=== PATIENT | female | born 1965 | race Caucasian/White ===

== ENCOUNTER 2018-11-10 04:50 | Emergency (ER) | payer BC ==
[2018-11-10] MEDS ORDERED: Ondansetron 4 MG/2 ML SDV IVPUSH ONE (05:10)
[2018-11-10] MEDS ORDERED: Sodium Chloride 0.9% 1,000 ML IV SCH (05:15)
--- NOTE | 2018-11-10 05:17 | EDM.PDOC ---
<Layton Rebollar - Last Filed: 11/10/18 07:15> ED HPI GENERAL MEDICAL PROBLEM - General Chief Complaint: Abdominal Pain Stated Complaint: abdominal pain Time Seen by Provider: 11/10/18 05:00 Source of Information: Reports: Patient, Family (), RN Notes Reviewed History Limitations: Reports: No Limitations - History of Present Illness INITIAL COMMENTS - FREE TEXT/NARRATIVE: The patient states that she was woken from sleep around 04:20 this morning with severe upper abdominal pain, predominantly right upper quadrant, that radiated through to her mid back, just right of center. She is unable to describe the character, and found no modifiers, however, during my interview of the patient, her pain suddenly resolved. She had nausea, but no emesis. No recent constipation or diarrhea. No recent fever. No recent illnesses. No prior similar symptoms. The patient states that she had dinner, including spaghetti and a steak, around 18:00. She states that she had only 1 alcoholic beverage last night. The patient does not have a PCP. Her last general physical exam was anywhere from 3-10 years ago. Right Upper Abdomen Pain Score (Numeric/FACES): 10 - Related Data Allergies Allergy/AdvReac Type Severity Reaction Status Date / Time No Known Allergies Allergy Verified 11/10/18 05:01 Home Meds: Home Meds Hydrocodone/Acetaminophen [Lortab 5-325 mg Tablet] 1 tab PO BID 05/16/14 [ History] Ibuprofen [Motrin] 600 mg PO BID 05/16/14 [History] Past Medical History - Past Surgical History Female Surgical History: Reports: Section (x 1), Hysterectomy ( partial) Musculoskeletal Surgical History: Reports: Other (See Below) (Right 5th finger surgery) Social & Family History - Tobacco Use Smoking Status *Q: Current Every Day Smoker Years of Tobacco use: 41 Packs/Tins Daily: 1 - Alcohol Use Alcohol Use History: Yes Alcohol Use Frequency: Socially (occasionally to excess) - Recreational Drug Use Recreational Drug Use: No - Living Situation & Occupation Living situation: Reports: , with Spouse Occupation: Unemployed ED ROS GENERAL - Review of Systems Review Of Systems: ROS reveals no pertinent complaints other than HPI. ED EXAM, GI/ABD - Physical Exam Exam: See Below Exam Limited By: No Limitations General Appearance: Alert, WD/WN, Other (Initially in considerable pain, however , her pain resolved during my interview. She was pain-free by the time of examination.) Eyes: Bilateral: Normal Appearance, EOMI Ears: Normal External Exam, Hearing Grossly Normal Nose: Normal Inspection Throat/Mouth: Normal Inspection, Normal Lips, Normal Voice, No Airway Compromise Head: Atraumatic, Normocephalic Neck: Normal Inspection, Full Range of Motion Respiratory/Chest: No Respiratory Distress, Lungs Clear, Normal Breath Sounds, No Accessory Muscle Use Cardiovascular: Normal Peripheral Pulses, Regular Rate, Rhythm, No Edema, No Gallop, No JVD, No Murmur, No Rub GI/Abdominal Exam: Normal Bowel Sounds (active), Soft, No Organomegaly, No Distention, No Abnormal Bruit, No Mass, Tender (Mild, right upper quadrant only. Nontender elsewhere. Silverman's sign absent.) (Female) Exam: Deferred Rectal (Female) Exam: Deferred Back Exam: Normal Inspection, Full Range of Motion, NT Extremities: Normal Inspection, Normal Range of Motion, No Pedal Edema, Normal Capillary Refill Neurological: Alert, Oriented, Normal Cognition, No Motor/Sensory Deficits Psychiatric: Normal Affect Skin Exam: Warm, Dry, Intact, Normal Color, No Rash Course - Vital Signs Last Recorded V/S: Last Vital Signs Temp 95.5 F 11/10/18 04:58 Pulse 67 11/10/18 04:58 Resp BP 128/78 11/10/18 04:58 Pulse Ox 98 11/10/18 04:58 - Orders/Labs/Meds Orders: Active Orders 24 hr Category Date Time Status Sodium Chloride 0.9% [Normal Saline] 1,000 ml Med 11/10/18 05:15 Active IV ASDIRECTED Medication Orders Sodium Chloride (Normal Saline) 1,000 mls @ 150 mls/hr IV ASDIRECTED SUREKHA Last Admin: 11/10/18 05:21 Dose: 150 mls/hr Labs: Laboratory Tests 11/10/18 11/10/18 Range/Units 05:00 05:00 WBC 13.12 H (3.98-10.04) K/mm3 RBC 4.81 (3.98-5.22) M/mm3 Hgb 15.3 (11.2-15.7) gm/L Hct 45.7 H (34.1-44.9) % MCV 95.0 H (79.4-94.8) fl MCH 31.8 (25.6-32.2) pg MCHC 33.5 (32.2-35.5) g/dl RDW Std Deviation 47.1 H (36.4-46.3) fL Plt Count 394 H (182-369) K/mm3 MPV 9.6 (9.4-12.3) fl Neutrophils % (Manual) 49 (40-60) % Band Neutrophils % 0 (0-10) % Lymphocytes % (Manual) 46 H (20-40) % Atypical Lymphs % 0 % Monocytes % (Manual) 3 (2-10) % Eosinophils % (Manual) 0 L (0.7-5.8) % Basophils % (Manual) 2 H (0.1-1.2) Platelet Estimate Adequate RBC Morph Comment Normal Sodium 142 (136-145) mEq/L Potassium 4.0 (3.5-5.1) mEq/L Chloride 107 (98-107) mEq/L Carbon Dioxide 24 (21-32) mEq/L Anion Gap 15.0 (5-15) BUN 18 (7-18) mg/dL Creatinine 0.9 (0.55-1.02) mg/dL Est Cr Clr Drug Dosing 60.99 mL/min Estimated GFR (MDRD) > 60 (>60) mL/min BUN/Creatinine Ratio 20.0 H (14-18) Glucose 150 H (74-106) mg/dL Calcium 9.0 (8.5-10.1) mg/dL Total Bilirubin 0.5 (0.2-1.0) mg/dL AST 170 H (15-37) U/L ALT 92 H (14-59) U/L Alkaline Phosphatase 118 H (46-116) U/L Total Protein 6.7 (6.4-8.2) g/dl Albumin 3.4 (3.4-5.0) g/dl Globulin 3.3 gm/dL Albumin/Globulin Ratio 1.0 (1-2) Lipase 151 (73-393) U/L Meds: Medications Generic Name Dose Route Start Last Admin Trade Name Freq PRN Reason Stop Dose Admin Sodium Chloride 1,000 mls @ 150 mls/hr 11/10/18 05:15 11/10/18 05:21 Normal Saline IV 150 mls/hr ASDIRECTED SUREKHA Administration Discontinued Medications Generic Name Dose Route Start Last Admin Trade Name Charley PRN Reason Stop Dose Admin Diatrizoate Meglum/Diatrizoate Sod 90 ml 11/10/18 06:19 11/10/18 06:36 Gastrografin 37% PO 11/10/18 06:20 90 ml ONETIME ONE Administration Iopamidol 100 ml 11/10/18 06:19 11/10/18 06:36 Isovue-300 (61%) IVPUSH 11/10/18 06:20 100 ml ONETIME ONE Administration Ondansetron HCl 4 mg 11/10/18 05:10 11/10/18 05:19 Zofran IVPUSH 11/10/18 05:11 4 mg ONETIME ONE Administration - Re-Assessments/Exams Free Text/Narrative Re-Assessment/Exam: 11/10/18 05:12 Both history and physical examination, the pain that the patient was experiencing earlier was most likely biliary colic. The pain has now resolved. I have ordered blood work and a CT scan of the abdomen and pelvis to evaluate. In the meantime, patient will receive some Zofran and IV fluid. She may have pain medication if her pain returns. 11/10/18 06:42 The patient's CBC is remarkable for a WBC count elevated at 13.12, but with 0% bandemia. The hemoglobin is normal, but the hematocrit is slightly elevated at 45.7. Platelets are elevated at 394,000. The remainder of the CBC is unremarkable. Her CMP is remarkable for a blood glucose elevated at 150, AST/ALT elevated at 170/92, and alkaline phosphatase slightly elevated at 118. The remainder of the CMP is normal. Her lipase is within normal limits at 115. 11/10/18 07:[address] Rob Toney, and care of the patient turned over to him at this time, for change of shift. Departure - Departure Disposition: Home, Self-Care 01 Clinical Impression: Abdominal pain Qualifiers: Abdominal location: right upper quadrant Qualified Code(s): R10.11 - Right upper quadrant pain - Discharge Information Referrals: PCP,None [Primary Care Provider] - Forms: ED Department Discharge Additional Instructions: Out patient order has been provided and you are scheduled for US of GB 8 AM tomorrow. Nothing to eat or drink after midnight tonight. Avoid fatty foods in general for now for as discussed that could easily trigger further GB symptoms. Follow up with Dr Oliveros, General Surgeon at [facility] or one of the other providers at [facility] preferably about 2 to 3 days after US of FB. Call [phone] for appt. Return to ED if symptoms worsening in any way. <Kenneth Toney - Last Filed: 11/10/18 07:35> Course - Re-Assessments/Exams Free Text/Narrative Re-Assessment/Exam: 11/10/18 07:25 CT of abd shows some gallstones in the GB, no acute findings. Her pain is gone , hx very strongly suggestive for GB, she may have passed a stone. Will set her up for outpatient US of GB. That is scheduled for 8 AM tomorrow, discharge instr. as documented. Departure - Departure Time of Disposition: 07:27 Condition: Fair
[2018-11-10] MEDS ORDERED: Iopamidol 612 MG/ML 100 ML Bottle IVPUSH ONE (06:19)
[2018-11-10] MEDS ORDERED: Diatrizoate Meglumine/Diatrizoate Sodium 37% 120 ML Bottle PO ONE (06:19)
--- NOTE | 2018-11-10 07:08 | CT ---
CT Abdomen and pelvis Technique: Multiple axial sections were obtained from above the dome of the diaphragm inferiorly through the pubic symphysis. Intravenous and oral contrast has been given. Comparison: No previous CT abdomen or pelvis exam. Focal density noted within the right lung base either due to scarring or atelectasis. Liver contains no focal abnormality. Spleen appears within normal limits. Gallstones seen within the gallbladder. No gallbladder wall thickening is seen on this exam. Pancreas is within normal limits. Adrenal glands show no nodule. Kidneys show symmetric contrast enhancement without hydronephrosis or mass. Aorta shows no aneurysm. No retroperitoneal adenopathy or mesenteric abnormalities are seen. Appendix is seen which is normal in size. Diverticuli are seen within the sigmoid colon which show no evidence of diverticulitis. Previous hysterectomy is noted. No free fluid or inflammatory change is seen. Delayed images show contrast within the distal ureters and bladder. Bone window settings were reviewed which appear within normal limits for the patient's age. Impression: 1. Gallstones. 2. Mild atelectasis or scarring within the right lung base. 3. Sigmoid diverticuli without diverticulitis. 4. Prior hysterectomy. Diagnostic code #3
== END 2018-11-10 07:50 | disposition home or self-care (01) ==
LOC: JD.ED 04:50
DX: R10.11 Right upper quadrant pain (principal); F17.210 Nicotine dependence, cigarettes, uncomplicated
CPT/HCPCS: 36415; 74177; 80053; 83690; 85007; 85027; 96361; 96374; 99284; J2405; J7040; Q9963; Q9967

== ENCOUNTER 2020-07-24 13:02 | Emergency (ER) | payer BC ==
[2020-07-24] MEDS ORDERED: Ketorolac 30 MG/ML SDV IM ONE (13:53)
[2020-07-24] MEDS ORDERED: Ondansetron 4 MG Tab.DIS PO ONE (13:53)
--- NOTE | 2020-07-24 14:03 | EDM.PDOC ---
ED HPI GENERAL MEDICAL PROBLEM - General Chief Complaint: General Stated Complaint: SOB HEADACHE Time Seen by Provider: 07/24/20 13:20 Source of Information: Reports: Patient History Limitations: Reports: No Limitations - History of Present Illness INITIAL COMMENTS - FREE TEXT/NARRATIVE: 54-year-old female presents to the emergency department today with complaints of cough, shortness of breath and a headache. The patient states she had her first Covid vaccination about 5 days ago. She states that initially the day after she started having body aches, a severe headache, and nausea with diarrhea. She states that progressively over the past several days she has developed congestive persistent cough with yellow sputum. She still has a headache, she has been nauseated, last vomiting last evening. However, she states that she is vomiting due to coughing so hard. She states she has not had much in the way of an appetite however she has been drinking fluids. She states that her and grandchildren have recently been sick with as well. She also states that she did test positive for Covid in May 2019. Of note, she is a smoker but has no other comorbid conditions. She does not take any prescription medications. Treatments SUPPORT SERVICES SPECIALIST: Reports: NSAIDS Mid-Anterior Forehead Pain Score (Numeric/FACES): 8 - Related Data Allergies Allergy/AdvReac Type Severity Reaction Status Date / Time No Known Allergies Allergy Verified 07/24/20 13:14 Home Meds: Home Meds Albuterol Sulfate [Albuterol Sulfate HFA] 8.5 gm INH Q2H PRN #1 inhaler 07/24/20 [Rx] Benzonatate [Tessalon Perle] 100 mg PO TID PRN #20 capsule 07/24/20 [Rx] Past Medical History CCNA History: Reports: - Past Surgical History GI Surgical History: Reports: Cholecystectomy Female Surgical History: Reports: Section, Hysterectomy Musculoskeletal Surgical History: Reports: Other (See Below) Social & Family History - Tobacco Use Tobacco Use Status *Q: Current Every Day Tobacco User Years of Tobacco use: 30 Packs/Tins Daily: 0.5 Second Hand Smoke Exposure: No - Caffeine Use Caffeine Use: Reports: None - Recreational Drug Use Recreational Drug Use: No - Living Situation & Occupation Living situation: Reports: , with Spouse Occupation: Unemployed ED ROS GENERAL - Review of Systems Review Of Systems: See Below Constitutional: Reports: Chills, Malaise, Decreased Appetite. Denies: Fever, Diaphoresis HEENT: Reports: No Symptoms. Denies: Rhinitis, Sinus Problem, Throat Pain Respiratory: Reports: Shortness of Breath, Cough, Sputum (yellow) Cardiovascular: Reports: Dyspnea on Exertion. Denies: Chest Pain, Lightheadedness, Palpitations Endocrine: Reports: No Symptoms GI/Abdominal: Reports: Diarrhea, Nausea, Vomiting. Denies: Abdominal Pain, Constipation : Reports: No Symptoms Musculoskeletal: Reports: Other (generalized body aches) Skin: Reports: No Symptoms Neurological: Reports: Headache Psychiatric: Reports: No Symptoms Hematologic/Lymphatic: Reports: No Symptoms ED EXAM, GENERAL - Physical Exam Exam: See Below Exam Limited By: No Limitations General Appearance: Alert, WD/WN, Mild Distress Ears: Normal External Exam, Hearing Grossly Normal Nose: Normal Inspection Throat/Mouth: Normal Inspection, Normal Lips, Normal Oropharynx, Normal Voice, No Airway Compromise Head: Atraumatic, Normocephalic Neck: Normal Inspection, Supple, Non-Tender, Full Range of Motion Respiratory/Chest: No Respiratory Distress, Chest Non-Tender, Wheezing (exp wheezed noted bilaterally), Other (congested cough productive for yellow sputum). No: Lungs Clear, Normal Breath Sounds Cardiovascular: Normal Peripheral Pulses, No Edema, No Murmur, Tachycardia Peripheral Pulses: 2+: Radial (L), Radial (R) GI/Abdominal: Normal Bowel Sounds, Soft, Non-Tender, No Distention (Female) Exam: Deferred Rectal (Female) Exam: Deferred Back Exam: Normal Inspection, Full Range of Motion Extremities: Normal Inspection, Normal Range of Motion, Non-Tender, No Pedal Edema, Normal Capillary Refill Neurological: Alert, Oriented, Normal Cognition Psychiatric: Normal Affect, Normal Mood Skin Exam: Warm, Dry, Intact, Normal Color, No Rash Lymphatic: No Adenopathy Course - Vital Signs Text/Narrative:: 54-year-old female who developed shortness of breath, cough, and a headache after receiving her first Covid vaccination about 1 week ago. She states that those symptoms have consistently progressed into nausea, vomiting and diarrhea. She denies any fever however she has had the chills. I have ordered labs and a chest x-ray. Patient's O2 sats on room air are 94%. I have also ordered a send out Covid swab. Last Recorded V/S: Last Vital Signs Temp 97.9 F 07/24/20 13:33 Pulse 106 H 07/24/20 13:33 Resp 22 H 07/24/20 13:33 BP 153/82 H 07/24/20 13:33 Pulse Ox 94 L 07/24/20 13:33 - Orders/Labs/Meds Labs: Laboratory Tests 07/24/20 07/24/20 07/24/20 Range/Units 13:15 14:12 14:12 WBC 12.95 H (3.98-10.04) K/mm3 RBC 4.61 (3.98-5.22) M/mm3 Hgb 14.7 (11.2-15.7) gm/dl Hct 43.3 (34.1-44.9) % MCV 93.9 (79.4-94.8) fl MCH 31.9 (25.6-32.2) pg MCHC 33.9 (32.2-35.5) g/dl RDW Std Deviation 42.9 (36.4-46.3) fL Plt Count 373 H (182-369) K/mm3 MPV 9.5 (9.4-12.3) fl Neut % (Auto) 79.7 H (34.0-71.1) % Lymph % (Auto) 12.2 L (19.3-51.7) % Shoshone % (Auto) 7.4 (4.7-12.5) % Eos % (Auto) 0.5 L (0.7-5.8) Baso % (Auto) 0.2 (0.1-1.2) % Neut # (Auto) 10.32 H (1.56-6.13) K/mm3 Lymph # (Auto) 1.58 (1.18-3.74) K/mm3 Shoshone # (Auto) 0.96 H (0.24-0.36) K/mm3 Eos # (Auto) 0.06 (0.04-0.36) K/mm3 Baso # (Auto) 0.03 (0.01-0.08) K/mm3 Sodium 141 (136-145) mEq/L Potassium 3.7 (3.5-5.1) mEq/L Chloride 104 (98-107) mEq/L Carbon Dioxide 24 (21-32) mEq/L Anion Gap 16.7 H (5-15) BUN 15 (7-18) mg/dL Creatinine 0.7 (0.55-1.02) mg/dL Est Cr Clr Drug Dosing 74.23 mL/min Estimated GFR (MDRD) > 60 (>60) mL/min BUN/Creatinine Ratio 21.4 H (14-18) Glucose 98 (74-106) mg/dL Calcium 9.4 (8.5-10.1) mg/dL Magnesium 2.0 (1.8-2.4) mg/dl Total Bilirubin 0.4 (0.2-1.0) mg/dL AST 28 (15-37) U/L ALT 53 (14-59) U/L Alkaline Phosphatase 102 (46-116) U/L C-Reactive Protein 4.3 H* (<1.0) mg/dL Total Protein 7.5 (6.4-8.2) g/dl Albumin 3.2 L (3.4-5.0) g/dl Globulin 4.3 gm/dL Albumin/Globulin Ratio 0.7 L (1-2) Influenza Type A RNA Negative (NEGATIVE) Influenza Type B RNA Negative (NEGATIVE) SARS-CoV-2 RNA (LAUREN) Negative (NEGATIVE) Meds: Medications Discontinued Medications Generic Name Dose Route Start Last Admin Trade Name Farhanq PRN Reason Stop Dose Admin Ketorolac Tromethamine 30 mg 07/24/20 13:53 07/24/20 14:16 Ketorolac 30 Mg/Ml Sdv IM 07/24/20 13:54 30 mg ONETIME ONE Administration Ondansetron HCl 4 mg 07/24/20 13:53 07/24/20 14:16 Ondansetron 4 Mg Tab.Dis PO 07/24/20 13:54 4 mg ONETIME ONE Administration - Re-Assessments/Exams Free Text/Narrative Re-Assessment/Exam: 07/24/20 14:42 Radiologist impression portable view of the chest: 1. Nothing acute is seen on portable chest x-ray. 07/24/20 15:04 Labs reveal a WBC 12.95, platelet count 3.73, neutrophil percentage 79.7, chemistry reveals an anion gap of 16.7, and a C-reactive protein of 4.3. Influenza a and B are negative Covid is negative. Patient likely has viral respiratory illness. She will be discharged home with a prescription for Tessalon Perles and an albuterol inhaler. She will need to follow-up with her primary care provider in about a week if she is not better. Departure - Departure Time of Disposition: 15:05 Disposition: Home, Self-Care 01 Condition: Good Clinical Impression: Viral respiratory illness - Discharge Information Prescriptions: Albuterol Sulfate [Albuterol Sulfate HFA] 8.5 gm INH Q2H PRN #1 inhaler PRN Reason: Shortness Of Breath Benzonatate [Tessalon Perle] 100 mg PO TID PRN #20 capsule PRN Reason: Cough Referrals: PCP,None [Primary Care Provider] - Forms: ED Department Discharge Additional Instructions: You were seen in the emergency department today with complaints of cough, shortness of breath, and a headache. Chest x-ray and labs were completed and these were unremarkable. You do not have Covid or influenza. It is likely you just have a viral respiratory illness. I have sent prescription for Tessalon Perles. You can take these 3 times daily and they should help your cough. I have also sent a prescription to your pharmacy for an albuterol inhaler. You can take this every 2 hours as needed for shortness of breath or cough however keep in mind that this medication can make your heart race. Follow-up with your primary care physician if you are not better in about a week. Sepsis Event Note (ED) - Evaluation Sepsis Screening Result: No Definite Risk - Focused Exam Vital Signs: Vital Signs Temp Pulse Resp BP Pulse Ox 07/24/20 13:33 97.9 F 106 H 22 H 153/82 H 94 L
[2020-07-24 14:30] LABS: CORONAVIRUS COVID-19 NAA NEGATIVE (NEGATIVE)
--- NOTE | 2020-07-24 14:30 | CR ---
Chest: Portable view of the chest was obtained. Comparison: No prior chest imaging is available. Heart size and mediastinum are normal. Lungs are clear with no acute parenchymal change. Bony structures are grossly intact. Minimal scoliosis is noted. Prior cholecystectomy is seen. Impression: 1. Nothing acute is seen on portable chest x-ray. Diagnostic code #2
== END 2020-07-24 15:15 | disposition home or self-care (01) ==
LOC: JD.ED 13:02
DX: J98.8 Other specified respiratory disorders (principal); Z72.0 Tobacco use; Z20.822 Contact with and (suspected) exposure to COVID-19
CPT/HCPCS: 0240U; 36415; 71045; 80053; 83735; 85025; 86140; 96372; 99285; A9270; J1885; 99283

== ENCOUNTER 2022-05-07 12:39 | Emergency (ER) | payer SELFPAY ==
[2022-05-07] MEDS ORDERED: Sodium Chloride 0.9% 10 ML Syringe FLUSH PRN (15:32)
[2022-05-07] MEDS ORDERED: Sodium Chloride 0.9% 1,000 ML IV STA ×3 (16:27→20:02)
[2022-05-07 16:42] LABS: CORONAVIRUS COVID-19 NAA NEGATIVE (NEGATIVE)
[2022-05-07] MEDS ORDERED: HYDROmorphone 0.5 MG/0.5 ML Syringe IVPUSH ONE (17:27)
[2022-05-07] MEDS ORDERED: cefTRIAXone 2 GM in Sodium Chloride 0.9% 100 ML IV ONE (22:47)
[2022-05-08] MEDS ORDERED: Sodium Chloride 0.9% 1,000 ML IV SCH (03:30)
[2022-05-08] MEDS ORDERED: HYDROmorphone 0.5 MG/0.5 ML Syringe IVPUSH ONE (03:52)
[2022-05-08] MEDS ORDERED: Potassium Chloride 20 MEQ Tab.ER PO ONE (07:20)
== END 2022-05-08 08:07 | disposition home or self-care (01) ==
LOC: JD.ED 12:39
DX: J10.1 Influenza due to other identified influenza virus with other respiratory manifestations (principal); N39.0 Urinary tract infection, site not specified; N17.9 Acute kidney failure, unspecified; Z20.822 Contact with and (suspected) exposure to COVID-19
CPT/HCPCS: 0241U; 36415; 71045; 71045-26; 80053; 81001; 83735; 85025; 86140; 87086; 96361; 96365; 96375; 96376; 99283-25; A9270-GY; J0696; J1170; J3490; J7030

== ENCOUNTER 2024-07-27 13:01 | Inpatient (IN) | payer BC ==
[2024-07-27] MEDS: Acetaminophen 325 MG Tab PO ONE (14:48)
[2024-07-27] MEDS: Sodium Chloride 0.9% 10 ML Syringe FLUSH PRN (14:50)
[2024-07-27] MEDS: Ondansetron 4 MG/2 ML SDV IVPUSH ONE (14:50)
[2024-07-27] MEDS: Sodium Chloride 0.9% 1,000 ML IV STA ×2 (14:51→15:45)
[2024-07-27] MEDS: Piperacillin/Tazobactam 4.5 GM in Sodium Chloride 0.9% 100 ML IV ONE (14:52)
[2024-07-27 15:04] LABS: HEMATOCRIT 39.7 % (37.0-47.0); HEMOGLOBIN 13.4 gm/dl (12.0-16.0); MEAN CORPUSCULAR HEMOGLOBIN 31.5 pg (28.0-32.0); MEAN CORPUSCULAR HGB CONC 33.8 g/dl (32.0-36.0); MEAN CORPUSCULAR VOLUME 93.2 fl (83.0-99.0); MEAN PLATELET VOLUME 10.2 fl (9.4-12.3); PLATELET COUNT,PLT 312 K/mm3 (150-400); RED BLOOD CELL COUNT 4.26 M/mm3 (4.10-5.30); WHITE BLOOD CELL COUNT,WBC 14.22 K/mm3 (3.9-11.3)
[2024-07-27 15:10] LABS: INR 1.08; PROTHROMBIN TIME 11.4 SECONDS (9.7-12.0)
[2024-07-27 15:14] LABS: A/G RATIO 0.4 (1-2); ALBUMIN 1.9 g/dl (3.4-5.0); ANION GAP 13.3 (5-15); BILIRUBIN TOTAL 0.9 mg/dL (0.2-1.0); C-REACTIVE PROTEIN 19.76 mg/dL (<0.30); CREATININE 1.1 mg/dL (0.55-1.02); EST CRCL DRUG DOSING (CG) 37.23 mL/min; POTASSIUM,K 3.3 mEq/L (3.5-5.1); PROTEIN TOTAL,TP 6.3 g/dl (6.4-8.2)
[2024-07-27 15:19] LABS: LACTIC ACID 1.3 mmol/L (0.4-2.0)
[2024-07-27 15:25] LABS: BAND PERCENT MAN 3 % (0-10); BASOPHILS PERCENT MAN 0 (0.1-1.2); EOSINOPHILS PERCENT MAN 0 % (0.7-5.8); LYMPHOCYTES % ATYPICAL MANUAL 2 %; LYMPHOCYTES PERCENT MAN 5 % (20-40); MONOCYTES PERCENT MAN 8 % (2-10)
[2024-07-27 15:27] LABS: PLATELET COUNT ESTIMATE ADEQUATE
[2024-07-27 15:28] LABS: TOXIC GRANULATION FEW
[2024-07-27] MEDS ORDERED: Naloxone 0.4 MG/ML SDV IVPUSH PRN (16:16)
[2024-07-27] MEDS ORDERED: Sennosides/Docusate Sodium 50-8.6 MG Tab PO PRN (16:16)
[2024-07-27] MEDS ORDERED: Ondansetron 4 MG/2 ML SDV IV PRN (16:16)
[2024-07-27] MEDS: HYDROmorphone 0.5 MG/0.5 ML Syringe IVPUSH PRN (16:33)
[2024-07-27] MEDS: oxyCODONE 5 MG Tab PO PRN (16:33)
[2024-07-27] MEDS: Azithromycin 500 MG in Sodium Chloride 0.9% 250 ML IV SCH (18:32)
[2024-07-27] MEDS: Lactated Ringers 1,000 ML IV ONE (18:32)
[2024-07-27] MEDS: Potassium Chloride 20 MEQ Tab.ER PO ONE ×2 (18:57)
[2024-07-27] MEDS: Piperacillin/Tazobactam 4.5 GM in Sodium Chloride 0.9% 100 ML IV SCH (18:58)
[2024-07-27 20:36] LABS: APPEARANCE,URINE CLEAR (Clear); BILIRUBIN,URINE 1+ (Negative); COLOR,URINE YELLOW (Yellow); GLUCOSE,URINE NEGATIVE (Negative); KETONES,URINE TRACE (Negative); LEUKOCYTE ESTERASE,URINE TRACE (Negative); NITRITE,URINE NEGATIVE (Negative); OCCULT BLOOD,URINE NEGATIVE (Negative); PROTEIN,URINE 3+ (Negative)
[2024-07-27 21:01] LABS: BACTERIA,URINE MODERATE /hpf (FEW); MUCUS,URINE FEW /hpf (FEW); RBC,URINE 0-5 /hpf (0-5)
[2024-07-28 05:38] LABS: A/G RATIO 0.4 (1-2); ALBUMIN 1.5 g/dl (3.4-5.0); BILIRUBIN TOTAL 0.6 mg/dL (0.2-1.0); C-REACTIVE PROTEIN 16.19 mg/dL (<0.30); CALCIUM 8.5 mg/dL (8.5-10.1); EST CRCL DRUG DOSING (CG) 41.04 mL/min; MAGNESIUM 1.8 mg/dL (1.8-2.4); PHOSPHORUS 2.1 mg/dL (2.6-4.7); PROTEIN TOTAL,TP 5.3 g/dl (6.4-8.2)
[2024-07-28 06:17] LABS: BASOPHILS PERCENT AUTO 0.3 % (0.0-1.0); EOSINOPHILS PERCENT AUTO 0.2 % (0.0-6.0); HEMATOCRIT 35.2 % (37.0-47.0); IMMATURE GRAN ABSOLUTE AUTO 0.09 K/mm3 (0.00-0.05); IMMATURE GRAN PERCENT AUTO 0.8 % (0.0-0.4); LYMPHOCYTES ABSOLUTE AUTO 0.5 K/mm3 (1.0-4.8); LYMPHOCYTES PERCENT AUTO 4.5 % (24.0-44.0); MEAN CORPUSCULAR HEMOGLOBIN 31.6 pg (28.0-32.0); MEAN CORPUSCULAR VOLUME 95.9 fl (83.0-99.0); MEAN PLATELET VOLUME 10.4 fl (9.4-12.3); MONOCYTES ABSOLUTE AUTO 1.5 K/mm3 (0.0-0.8); MONOCYTES PERCENT AUTO 12.8 % (0.0-8.0); NEUTROPHILS ABSOLUTE AUTO 9.7 K/mm3 (1.8-7.7); NEUTROPHILS PERCENT AUTO 81.4 % (41.0-71.0); PLATELET COUNT,PLT 286 K/mm3 (150-400); RED BLOOD CELL COUNT 3.67 M/mm3 (4.10-5.30); WHITE BLOOD CELL COUNT,WBC 11.84 K/mm3 (3.9-11.3)
[2024-07-28 06:25] LABS: HEMOGLOBIN 11.6 gm/dl (12.0-16.0)
[2024-07-28 06:27] LABS: SLIDE REVIEW ABNORMAL SMEAR
[2024-07-28] MEDS: Albuterol/Ipratropium 3.0-0.5 MG/3 ML Neb Soln NEB PRN (08:24)
[2024-07-28] MEDS: Enoxaparin 40 MG/0.4 ML Syringe SUBCUT SCH (08:42)
[2024-07-28] MEDS: Acetaminophen 325 MG Tab PO PRN (08:42)
[2024-07-28] MEDS: Midodrine 5 MG Tab PO ONE (13:28)
[2024-07-28] MEDS: Loperamide 2 MG Cap PO PRN (13:28)
[2024-07-28] MEDS: Magnesium Sulfat/D5W 1GM/100ML 1 GM in Premix Bag 1 BAG IV ONE (14:32)
[2024-07-28] MEDS: Sodium Phosphate 30 MMOLE in Sodium Chloride 0.9% 250 ML IV ONE (15:48)
[2024-07-28] MEDS: Midodrine 5 MG Tab PO SCH (16:10)
[2024-07-29 04:39] LABS: BASOPHILS ABSOLUTE AUTO 0.1 K/mm3 (0.0-0.2); BASOPHILS PERCENT AUTO 0.7 % (0.0-1.0); EOSINOPHILS PERCENT AUTO 0.2 % (0.0-6.0); HEMATOCRIT 31.1 % (37.0-47.0); HEMOGLOBIN 10.4 gm/dl (12.0-16.0); IMMATURE GRAN ABSOLUTE AUTO 0.17 K/mm3 (0.00-0.05); IMMATURE GRAN PERCENT AUTO 1.1 % (0.0-0.4); LYMPHOCYTES ABSOLUTE AUTO 1.1 K/mm3 (1.0-4.8); LYMPHOCYTES PERCENT AUTO 7.1 % (24.0-44.0); MEAN CORPUSCULAR HEMOGLOBIN 31.7 pg (28.0-32.0); MEAN CORPUSCULAR HGB CONC 33.4 g/dl (32.0-36.0); MEAN CORPUSCULAR VOLUME 94.8 fl (83.0-99.0); MEAN PLATELET VOLUME 10.2 fl (9.4-12.3); MONOCYTES ABSOLUTE AUTO 1.7 K/mm3 (0.0-0.8); MONOCYTES PERCENT AUTO 10.4 % (0.0-8.0); NEUTROPHILS PERCENT AUTO 80.5 % (41.0-71.0); PLATELET COUNT,PLT 307 K/mm3 (150-400); RED BLOOD CELL COUNT 3.28 M/mm3 (4.10-5.30); WHITE BLOOD CELL COUNT,WBC 16.09 K/mm3 (3.9-11.3)
[2024-07-29 05:06] LABS: ANION GAP 13.1 (5-15); C-REACTIVE PROTEIN 15.72 mg/dL (<0.30); CALCIUM 8.2 mg/dL (8.5-10.1); EST CRCL DRUG DOSING (CG) 41.9 mL/min; MAGNESIUM 1.9 mg/dL (1.8-2.4); PHOSPHORUS 3.6 mg/dL (2.6-4.7); POTASSIUM,K 3.1 mEq/L (3.5-5.1)
[2024-07-29 05:19] LABS: SLIDE REVIEW ABNORMAL SMEAR
[2024-07-29] MEDS: Potassium Chloride 20 MEQ Tab.ER PO ONE (09:22)
[2024-07-29] MEDS: Magnesium Sulfat/D5W 1GM/100ML 1 GM in Premix Bag 1 BAG IV ONE (09:24)
[2024-07-29] MEDS: Potassium Chloride 10 MEQ in Premix Bag 1 BAG IV SCH (09:24)
[2024-07-29] MEDS: Loperamide 2 MG Cap PO PRN (09:38)
[2024-07-29] MEDS: Sodium Chloride 0.9% 50 ML IV ONE (12:00)
[2024-07-29] MEDS: Saccharomyces Boulardii (Probiotic) 250 MG Cap PO SCH (12:01)
[2024-07-29] MEDS: Lactated Ringers 1,000 ML IV ONE (16:03)
[2024-07-29] MEDS: Midodrine 5 MG Tab PO SCH (16:04)
[2024-07-29] MEDS ORDERED: Midodrine 5 MG Tab PO SCH (17:00)
[2024-07-30 05:27] LABS: BASOPHILS ABSOLUTE AUTO 0.1 K/mm3 (0.0-0.2); BASOPHILS PERCENT AUTO 0.7 % (0.0-1.0); EOSINOPHILS ABSOLUTE AUTO 0.1 K/mm3 (0.0-0.4); EOSINOPHILS PERCENT AUTO 0.3 % (0.0-6.0); HEMATOCRIT 31.9 % (37.0-47.0); HEMOGLOBIN 10.6 gm/dl (12.0-16.0); IMMATURE GRAN ABSOLUTE AUTO 0.28 K/mm3 (0.00-0.05); IMMATURE GRAN PERCENT AUTO 1.6 % (0.0-0.4); LYMPHOCYTES ABSOLUTE AUTO 1.4 K/mm3 (1.0-4.8); LYMPHOCYTES PERCENT AUTO 8.2 % (24.0-44.0); MEAN CORPUSCULAR HEMOGLOBIN 31.4 pg (28.0-32.0); MEAN CORPUSCULAR HGB CONC 33.2 g/dl (32.0-36.0); MEAN CORPUSCULAR VOLUME 94.4 fl (83.0-99.0); MEAN PLATELET VOLUME 9.9 fl (9.4-12.3); MONOCYTES ABSOLUTE AUTO 1.6 K/mm3 (0.0-0.8); MONOCYTES PERCENT AUTO 9.2 % (0.0-8.0); NEUTROPHILS ABSOLUTE AUTO 13.8 K/mm3 (1.8-7.7); PLATELET COUNT,PLT 424 K/mm3 (150-400); RED BLOOD CELL COUNT 3.38 M/mm3 (4.10-5.30); WHITE BLOOD CELL COUNT,WBC 17.25 K/mm3 (3.9-11.3)
[2024-07-30 05:28] LABS: ANION GAP 12.5 (5-15); BUN/CREATININE RATIO 12.2 (14-18); C-REACTIVE PROTEIN 12.45 mg/dL (<0.30); CALCIUM 8.3 mg/dL (8.5-10.1); CREATININE 0.9 mg/dL (0.55-1.02); EST CRCL DRUG DOSING (CG) 46.55 mL/min; MAGNESIUM 1.9 mg/dL (1.8-2.4); POTASSIUM,K 4.5 mEq/L (3.5-5.1)
[2024-07-30] MEDS ORDERED: Sodium Chloride 0.9% 10 ML Syringe FLUSH PRN (08:50)
[2024-07-30] MEDS ORDERED: Sodium Chloride 0.9% 100 ML IV SCH (09:00)
[2024-07-30 09:14] LABS: SLIDE REVIEW ABNORMAL SMEAR
[2024-07-30] MEDS: Iopamidol 755 Mg/ML 100 ML Bottle IVPUSH ONE (09:22)
[2024-07-30] MEDS: Sodium Chloride 0.9% 1,000 ML IV ONE (13:45)
[2024-07-30] MEDS: Dextrose 5%-0.45% NaCl 1,000 ML IV SCH (14:49)
[2024-07-30] MEDS: Azithromycin 500 MG in Sodium Chloride 0.9% 250 ML IV SCH (16:53)
[2024-07-30] MEDS: Melatonin 3 MG Tab PO PRN (20:34)
[2024-07-31 06:20] LABS: BASOPHILS ABSOLUTE AUTO 0.1 K/mm3 (0.0-0.2); BASOPHILS PERCENT AUTO 0.3 % (0.0-1.0); EOSINOPHILS ABSOLUTE AUTO 0.1 K/mm3 (0.0-0.4); EOSINOPHILS PERCENT AUTO 0.6 % (0.0-6.0); HEMATOCRIT 35.3 % (37.0-47.0); HEMOGLOBIN 11.5 gm/dl (12.0-16.0); IMMATURE GRAN ABSOLUTE AUTO 0.28 K/mm3 (0.00-0.05); IMMATURE GRAN PERCENT AUTO 1.8 % (0.0-0.4); LYMPHOCYTES ABSOLUTE AUTO 1.8 K/mm3 (1.0-4.8); LYMPHOCYTES PERCENT AUTO 11.3 % (24.0-44.0); MEAN CORPUSCULAR HEMOGLOBIN 31.6 pg (28.0-32.0); MEAN CORPUSCULAR HGB CONC 32.6 g/dl (32.0-36.0); MEAN PLATELET VOLUME 9.7 fl (9.4-12.3); MONOCYTES ABSOLUTE AUTO 0.9 K/mm3 (0.0-0.8); NEUTROPHILS ABSOLUTE AUTO 12.5 K/mm3 (1.8-7.7); RED BLOOD CELL COUNT 3.64 M/mm3 (4.10-5.30); WHITE BLOOD CELL COUNT,WBC 15.61 K/mm3 (3.9-11.3)
[2024-07-31 06:23] LABS: PLATELET COUNT,PLT 536 K/mm3 (150-400)
[2024-07-31 06:36] LABS: ANION GAP 10.8 (5-15); BUN/CREATININE RATIO 8.9 (14-18); C-REACTIVE PROTEIN 10.9 mg/dL (<0.30); CALCIUM 8.5 mg/dL (8.5-10.1); CREATININE 0.9 mg/dL (0.55-1.02); EST CRCL DRUG DOSING (CG) 47.69 mL/min; MAGNESIUM 1.9 mg/dL (1.8-2.4); PHOSPHORUS 2.6 mg/dL (2.6-4.7); POTASSIUM,K 3.8 mEq/L (3.5-5.1)
[2024-07-31] MEDS: Potassium Chloride 20 MEQ Tab.ER PO ONE (08:57)
[2024-07-31] MEDS: Magnesium Sulfat/D5W 1GM/100ML 1 GM in Premix Bag 1 BAG IV ONE (08:58)
[2024-07-31] MEDS ORDERED: Potassium Phosphates 30 MMOLE in Sodium Chloride 0.9% 500 ML IV SCH (10:30)
[2024-07-31] MEDS: Sodium Chloride 3% Inhalation Soln 4 ML Neb NEB ONE (10:42)
[2024-07-31] MEDS: Sodium Chloride 3% Inhalation Soln 4 ML Neb NEB SCH (10:42)
[2024-07-31] MEDS: Sodium Phosphate 30 MMOLE in Sodium Chloride 0.9% 250 ML IV ONE (12:19)
[2024-07-31] MEDS: guaiFENesin 600 MG Tab.ER PO SCH (15:17)
[2024-08-01 05:42] LABS: BASOPHILS ABSOLUTE AUTO 0.1 K/mm3 (0.0-0.2); BASOPHILS PERCENT AUTO 0.4 % (0.0-1.0); EOSINOPHILS ABSOLUTE AUTO 0.1 K/mm3 (0.0-0.4); EOSINOPHILS PERCENT AUTO 0.4 % (0.0-6.0); HEMATOCRIT 30.5 % (37.0-47.0); HEMOGLOBIN 10.3 gm/dl (12.0-16.0); IMMATURE GRAN ABSOLUTE AUTO 0.23 K/mm3 (0.00-0.05); IMMATURE GRAN PERCENT AUTO 1.4 % (0.0-0.4); LYMPHOCYTES ABSOLUTE AUTO 1.2 K/mm3 (1.0-4.8); LYMPHOCYTES PERCENT AUTO 7.3 % (24.0-44.0); MEAN CORPUSCULAR HEMOGLOBIN 32.3 pg (28.0-32.0); MEAN CORPUSCULAR HGB CONC 33.8 g/dl (32.0-36.0); MEAN CORPUSCULAR VOLUME 95.6 fl (83.0-99.0); MEAN PLATELET VOLUME 9.3 fl (9.4-12.3); MONOCYTES ABSOLUTE AUTO 0.8 K/mm3 (0.0-0.8); MONOCYTES PERCENT AUTO 4.9 % (0.0-8.0); NEUTROPHILS ABSOLUTE AUTO 14.2 K/mm3 (1.8-7.7); NEUTROPHILS PERCENT AUTO 85.6 % (41.0-71.0); PLATELET COUNT,PLT 542 K/mm3 (150-400); RED BLOOD CELL COUNT 3.19 M/mm3 (4.10-5.30); WHITE BLOOD CELL COUNT,WBC 16.59 K/mm3 (3.9-11.3)
[2024-08-01 05:59] LABS: ANION GAP 11.1 (5-15); C-REACTIVE PROTEIN 8.86 mg/dL (<0.30); CALCIUM 8.2 mg/dL (8.5-10.1); CREATININE 0.8 mg/dL (0.55-1.02); EST CRCL DRUG DOSING (CG) 56.6 mL/min; MAGNESIUM 1.9 mg/dL (1.8-2.4); PHOSPHORUS 3.5 mg/dL (2.6-4.7); POTASSIUM,K 4.1 mEq/L (3.5-5.1)
[2024-08-01] MEDS: Magnesium Sulfat/D5W 1GM/100ML 1 GM in Premix Bag 1 BAG IV ONE (09:20)
[2024-08-02 05:50] LABS: BASOPHILS ABSOLUTE AUTO 0.1 K/mm3 (0.0-0.2); BASOPHILS PERCENT AUTO 0.3 % (0.0-1.0); EOSINOPHILS ABSOLUTE AUTO 0.1 K/mm3 (0.0-0.4); EOSINOPHILS PERCENT AUTO 0.5 % (0.0-6.0); HEMATOCRIT 35.7 % (37.0-47.0); HEMOGLOBIN 11.6 gm/dl (12.0-16.0); IMMATURE GRAN ABSOLUTE AUTO 0.25 K/mm3 (0.00-0.05); IMMATURE GRAN PERCENT AUTO 1.2 % (0.0-0.4); LYMPHOCYTES ABSOLUTE AUTO 1.7 K/mm3 (1.0-4.8); LYMPHOCYTES PERCENT AUTO 8.1 % (24.0-44.0); MEAN CORPUSCULAR HEMOGLOBIN 31.4 pg (28.0-32.0); MEAN CORPUSCULAR HGB CONC 32.5 g/dl (32.0-36.0); MEAN CORPUSCULAR VOLUME 96.7 fl (83.0-99.0); MEAN PLATELET VOLUME 9.3 fl (9.4-12.3); MONOCYTES ABSOLUTE AUTO 0.8 K/mm3 (0.0-0.8); NEUTROPHILS ABSOLUTE AUTO 17.6 K/mm3 (1.8-7.7); NEUTROPHILS PERCENT AUTO 85.9 % (41.0-71.0); RED BLOOD CELL COUNT 3.69 M/mm3 (4.10-5.30); WHITE BLOOD CELL COUNT,WBC 20.45 K/mm3 (3.9-11.3)
[2024-08-02 05:53] LABS: PLATELET COUNT,PLT 714 K/mm3 (150-400)
[2024-08-02 05:58] LABS: CALCIUM 8.5 mg/dL (8.5-10.1); CREATININE 0.9 mg/dL (0.55-1.02); EST CRCL DRUG DOSING (CG) 51.55 mL/min; MAGNESIUM 2.1 mg/dL (1.8-2.4)
[2024-08-02] MEDS: Furosemide 20 MG/2 ML VIAL IVPUSH ONE (10:53)
[2024-08-02] MEDS: Cefepime 2 GM Vial IVPUSH SCH (10:53)
[2024-08-02] MEDS: Albuterol/Ipratropium 3.0-0.5 MG/3 ML Neb Soln NEB SCH (14:37)
[2024-08-02] MEDS ORDERED: oxyCODONE 5 MG Tab PO PRN (15:42)
[2024-08-03 04:45] LABS: BASOPHILS ABSOLUTE AUTO 0.1 K/mm3 (0.0-0.2); BASOPHILS PERCENT AUTO 0.5 % (0.0-1.0); EOSINOPHILS ABSOLUTE AUTO 0.2 K/mm3 (0.0-0.4); EOSINOPHILS PERCENT AUTO 1.2 % (0.0-6.0); HEMATOCRIT 32.9 % (37.0-47.0); HEMOGLOBIN 10.8 gm/dl (12.0-16.0); IMMATURE GRAN ABSOLUTE AUTO 0.16 K/mm3 (0.00-0.05); IMMATURE GRAN PERCENT AUTO 1.2 % (0.0-0.4); LYMPHOCYTES ABSOLUTE AUTO 1.3 K/mm3 (1.0-4.8); LYMPHOCYTES PERCENT AUTO 9.2 % (24.0-44.0); MEAN CORPUSCULAR HEMOGLOBIN 31.7 pg (28.0-32.0); MEAN CORPUSCULAR HGB CONC 32.8 g/dl (32.0-36.0); MEAN CORPUSCULAR VOLUME 96.5 fl (83.0-99.0); MEAN PLATELET VOLUME 9.1 fl (9.4-12.3); MONOCYTES ABSOLUTE AUTO 0.6 K/mm3 (0.0-0.8); MONOCYTES PERCENT AUTO 4.4 % (0.0-8.0); NEUTROPHILS ABSOLUTE AUTO 11.6 K/mm3 (1.8-7.7); NEUTROPHILS PERCENT AUTO 83.5 % (41.0-71.0); PLATELET COUNT,PLT 694 K/mm3 (150-400); RED BLOOD CELL COUNT 3.41 M/mm3 (4.10-5.30); WHITE BLOOD CELL COUNT,WBC 13.86 K/mm3 (3.9-11.3)
[2024-08-03 04:48] LABS: ANION GAP 12.8 (5-15); C-REACTIVE PROTEIN 6.71 mg/dL (<0.30); CALCIUM 8.2 mg/dL (8.5-10.1); EST CRCL DRUG DOSING (CG) 46.39 mL/min; POTASSIUM,K 3.8 mEq/L (3.5-5.1)
== END 2024-08-03 15:10 | disposition home or self-care (01) | DRG 720 ==
LOC: JD.ED 13:01 → JD.MS 15:35
PROVIDERS: ADMIT Student in an Organized Health Care Education/Training Program; ATTEND Family Medicine
DX: A41.9 Sepsis, unspecified organism (principal); J18.9 Pneumonia, unspecified organism; J96.01 Acute respiratory failure with hypoxia; R65.20 Severe sepsis without septic shock; E87.6 Hypokalemia; E83.39 Other disorders of phosphorus metabolism; E83.42 Hypomagnesemia; Z90.49 Acquired absence of other specified parts of digestive tract; Z87.891 Personal history of nicotine dependence; Z98.891 History of uterine scar from previous surgery
CPT/HCPCS: 36415; 71046; 71046-26; 71275; 71275-26; 80048; 80053; 81001; 83605; 83735; 84100; 85007; 85025; 85027; 85610; 86140; 86738; 87040; 87070; 87205; 87428-QW; 87641; 93005; 94640; 94667; 94668; 94761; 96365; 96375; 99285; 99285-25; A9270-GY; J0456; J0692; J1650; J1940; J2405; J2543; J3475; J3480; J3490; J7030; J7120; Q9967